=== PATIENT | female | born 1980 | race Hispanic/Latino ===

== ENCOUNTER → 2020-09-07 | Outpatient (CLI) | payer BC, SELFPAY ==
[2020-09-07 11:51] VITALS: BMI 21.3
[2020-09-14 03:07] LABS: HPV Genotype 16, Aptima Negative (Negative)
[2020-09-14 08:25] LABS: HPV APTIMA, High Risk Positive (Negative); HPV Genotype 18,45 Aptima Negative (Negative)
== END | disposition home or self-care (01) ==
PROVIDERS: PCP Family Medicine; Referring Provider Obstetrics & Gynecology; Visit Provider Obstetrics & Gynecology
DX: Z12.4 Encounter for screening for malignant neoplasm of cervix (principal)
CPT/HCPCS: 87624; 88175; G0145

== ENCOUNTER → 2020-11-01 08:00 | Outpatient (CLI) | payer BC, SELFPAY ==
[2019-10-07 13:18] VITALS: BMI 22.3
[2020-09-07 11:51] VITALS: BMI 21.3
--- NOTE | 2020-11-01 07:57 | BI_ITS ---
MAMMOGRAPHY - BILATERAL SCREENING REASON FOR EXAM: Female, 40 years old. Routine annual screening examination. PERTINENT HISTORY: Non-contributory. Occasional bilateral breast tenderness. TECHNIQUE: Digital bilateral breast meg (3D mammographic acquisition) in the CC and MLO projections. 2-D mediolateral oblique (MLO) and craniocaudad (CC) views of both breasts were obtained. CAD: Full Field Digital Mammography with Computer Added Detection was performed. COMPARISON: Comparison is made with prior outside examination dated 12/26/2015. FINDINGS: Breast Composition: The breasts are extremely dense, which lowers the sensitivity of mammography. There are no dominant masses or suspicious calcifications. No other significant abnormalities are identified. There has been no significant change since the prior study. BI/SCRN MAMM (CAD)W/MEG BILAT IMPRESSION: Stable bilateral screening mammogram. Yearly follow-up mammogram recommended. (A) ASSESSMENT CATEGORY: BIRADS Category 1: Negative. A letter regarding these results will be sent to the patient by the facility within 30 days. Approximately 10% of breast cancers are not detected by mammography. A normal mammogram should not delay biopsy of a clinically suspicious abnormality. [id number] Electronically Signed: Jovi Bosch MD at 10:32 EST , Service support ,
== END ==
PROVIDERS: PCP Family Medicine; Referring Provider Obstetrics & Gynecology; Visit Provider Obstetrics & Gynecology
DX: Z12.31 Encounter for screening mammogram for malignant neoplasm of breast (principal)
CPT/HCPCS: 77063; 77067

== ENCOUNTER → 2020-11-08 07:51 | Outpatient (CLI) | payer BC, SELFPAY ==
[2020-09-07 11:51] VITALS: BMI 21.3
[2020-11-08 08:50] LABS: Cholesterol 182 mg/dL (200); Glucose 82 mg/dL (74-106); High Density Lipoprotein 65 mg/dL; Thyroid Stim Hormone (TSH) 3.84 uIU/mL (0.358-3.74); Triglycerides 108 mg/dL; Very Low Density Lipoprotein 22 mg/dL (5-40)
[2020-11-08 09:12] LABS: Vitamin D,25 Hydroxy 32.7 ng/mL
== END ==
PROVIDERS: PCP Family Medicine; Referring Provider Obstetrics & Gynecology; Visit Provider Obstetrics & Gynecology
DX: Z13.220 Encounter for screening for lipoid disorders (principal); Z13.1 Encounter for screening for diabetes mellitus; Z13.29 Encounter for screening for other suspected endocrine disorder; Z13.21 Encounter for screening for nutritional disorder
CPT/HCPCS: 36415; 80061; 82306; 82947; 84443

== ENCOUNTER → 2020-11-10 08:00 | Outpatient (CLI) | payer BC, SELFPAY ==
[2020-09-07 11:51] VITALS: BMI 21.3
== END ==
PROVIDERS: PCP Family Medicine; Referring Provider Obstetrics & Gynecology; Visit Provider Obstetrics & Gynecology
DX: R79.89 Other specified abnormal findings of blood chemistry (principal)
CPT/HCPCS: 36415; 84439

== ENCOUNTER → 2021-08-20 | Outpatient (CLI) | payer BC, SELFPAY | END | disposition home or self-care (01) | LOC: LABSPEC 16:46 | PROVIDERS: PCP Family Medicine; Referring Provider Family Medicine; Visit Provider Family Medicine | DX: Z20.828 Contact with and (suspected) exposure to other viral communicable diseases (principal) | CPT/HCPCS: 87633; 87635; U0005; U0003 ==

== ENCOUNTER → 2021-09-20 | Outpatient (CLI) | payer BC, SELFPAY | END | disposition home or self-care (01) | PROVIDERS: PCP Family Medicine; Visit Provider Family Medicine | DX: U07.1 COVID-19 (principal) | CPT/HCPCS: 87635; U0003; U0005 ==

== ENCOUNTER 2021-10-05 09:27 | Outpatient (CLI) | payer BC, SELFPAY ==
[2021-10-05 10:16] LABS: Estradiol 21.3 pg/mL; Follicle Stimulating Hormone 63.2 mIU/mL; Luteinizing Hormone 19.6 mIU/mL; T4 Free Direct 0.84 ng/dL (0.76-1.46); Thyroid Stim Hormone (TSH) 1.99 uIU/mL (0.358-3.74)
[2021-10-10 12:08] LABS: Testosterone, Free < 0.06 ng/dL (0.10-0.85); Testosterone, Total < 3 ng/dL (4-50)
[2021-10-10 12:50] LABS: Testosterone, % Free 1.94 % (0.50-2.80)
[2021-10-11 22:06] LABS: HPV Genotype 16, Aptima Negative (Negative)
[2021-10-12 10:04] LABS: HPV APTIMA, High Risk Positive (Negative); HPV Genotype 18,45 Aptima Negative (Negative)
== END 2021-10-05 23:59 | disposition short-term general hospital (02) ==
PROVIDERS: PCP Family Medicine; Referring Provider Obstetrics & Gynecology; Visit Provider Obstetrics & Gynecology
DX: N93.9 Abnormal uterine and vaginal bleeding, unspecified (principal); Z12.4 Encounter for screening for malignant neoplasm of cervix; G43.909 Migraine, unspecified, not intractable, without status migrainosus; R79.89 Other specified abnormal findings of blood chemistry
CPT/HCPCS: 36415; 82670; 83001; 83002; 84402; 84403; 84439; 84443; 87624; 88175; G0145

== ENCOUNTER 2021-11-02 09:55 | Outpatient (CLI) | payer BC, SELFPAY ==
--- NOTE | 2021-11-02 09:59 | BI_ITS ---
MAMMOGRAPHY - BILATERAL SCREENING REASON FOR EXAM: Female, 41 years old. Routine annual screening examination. PERTINENT HISTORY: Non-contributory. TECHNIQUE: Digital bilateral breast meg (3D mammographic acquisition) in the CC and MLO projections. 2-D mediolateral oblique (MLO) and craniocaudad (CC) views of both breasts were obtained. CAD: Full Field Digital Mammography with Computer Added Detection was performed. COMPARISON: Comparison is made with prior examination dated 11/01/2020. FINDINGS: Breast Composition: The breasts are extremely dense, which lowers the sensitivity of mammography. There are no dominant masses or suspicious calcifications. No other significant abnormalities are identified. There has been no significant change since the prior study. BI/SCRN MAMM (CAD)W/MEG BILAT IMPRESSION: Stable bilateral screening mammogram. Yearly follow-up mammogram recommended. (A) ASSESSMENT CATEGORY: BIRADS Category 1: Negative. A letter regarding these results will be sent to the patient by the facility within 30 days. Approximately 10% of breast cancers are not detected by mammography. A normal mammogram should not delay biopsy of a clinically suspicious abnormality. [id number] Electronically Signed: Jovi Bosch MD at 11:20 EST ,
== END 2021-11-02 23:59 | disposition home or self-care (01) ==
LOC: OPBI 09:59
PROVIDERS: PCP Family Medicine; Referring Provider Obstetrics & Gynecology; Visit Provider Obstetrics & Gynecology
DX: Z12.31 Encounter for screening mammogram for malignant neoplasm of breast (principal)
CPT/HCPCS: 77063; 77067

== ENCOUNTER 2021-11-22 13:52 | Outpatient (CLI) | payer BC, SELFPAY ==
--- NOTE | 2021-11-22 | IMM_PTH ---
PATIENT: POLO HALEY LOC: [facility] U#:[id number] AGE/SX: 41/F ROOM: RE11/22/[address]: Dr. Macie Espana DO : 1980 BED: DIS: 11/22/2021 SPEC #: [id number] RECD: 11/26/21 14:00 STATUS: CHAVA SUMIT #: [id number] MAKENNA: 11/22/21 00:[address]: Macie Espana DEPT: IMMUNOHISTOCHEMISTRY RECD BY: Estela Disla ENTERED: 11/26/21 14:02 SP TYPE: IMMUNO OTHR DR: Dr. Víctor Biswas MD Tissues: B - Uterine cervix, NOS Procedures: p16 (initial) KI-67 (add) PHYSICIAN & INSTITUTION [place] [id number] SPECIMEN INFORMATION: Tissue Source: B ? Cervix at 12 o?clock Clinical Info: HPV positive Specimen Number: [id number] CPT code: 64555, 48016 METHODOLOGY: Deparaffinized sections of prefer/formalin-fixed tissue or PAP/DQ stained slides are incubated with monoclonal/polyclonal antibodies/oligonucleotide probes. Localization is made via biotin free immunoperoxidase method. Appropriate controls are performed and reacted as expected. Results on target cell population are indicated in the following table: RESULTS: ANTIBODY / CLONE RESULT Block B P16 (E6H4) positive, block staining Ki-67 (30-9) positive, moderate These tests were developed and their performance characteristics determined by [facility]. They may not have been cleared or approved by the U.S. Food and Drug Administration. The FDA has determined that such clearance or approval is not necessary. The above immunohistochemical/dualISH markers are ordered and reviewed by the Pathologist. INTERPRETATION: B. Cervix at 12 o?clock, biopsy: Mild and moderate squamous dysplasia. JOSEPH:gonzález 11/27/2021
--- NOTE | 2021-11-22 12:15 | CER_PTH ---
PATIENT: POLO HALEY LOC: [facility] U#:[id number] AGE/SX: 41/F ROOM: RE11/22/[address]: Dr. Macie Espana DO : 1980 BED: DIS: 11/22/2021 SPEC #: [id number] RECD: 11/22/21 13:32 STATUS: CHAVA SUMIT #: [id number] MAKENNA: 11/22/21 12:[address]: Maice Espana DEPT: SURGICAL PATHOLOGY RECD BY: Morena Casiano ENTERED: 11/23/21 09:19 SP TYPE: CERV OTHR DR: Dr. Víctor Biswas MD Tissues: A - Endocervical B - Uterine cervix, NOS Procedures: Surgery Specimen Level IV HEADER OPERATION: Colposcopy PRE-OP DIAGNOSIS: HPV positive TISSUE SUBMITTED: A ? Endocervical curettage, B ? Cervix 12 o?clock MICROSCOPIC DIAGNOSIS A. Endocervical curettings: Fragments of benign endocervical epithelium, negative for dysplasia. B. Cervix, 12 o?clock, biopsy: Mild and moderate squamous dysplasia (HGSIL, ELISA I-II) with HPV changes. Moderate chronic inflammation. See comment. JOSEPH:gonzález 11/26/2021 COMMENT B. Immunohistochemistry ([id number]) for surrogate HPV marker (p16) supports the above diagnosis. MICROSCOPIC DESCRIPTION Slides are reviewed. GROSS DESCRIPTION A - Received in fixative is one container labeled with the patient's name and designated endocervical curettage. The specimen consists of a scant amount of soft tissue. The specimen is totally submitted for cell block preparation. B - Received in fixative is one container labeled with the patient's name and designated 12 o'clock. The specimen consists of multiple irregular fragments of light varma soft tissue that in aggregate measure 0.4 x 0.3 x 0.1 cm. The specimen is totally submitted in one cassette. / JOSEPH:gonzález 11/23/2021 TC:3 CPT: 72940 x2
== END 2021-11-22 23:59 | disposition home or self-care (01) ==
LOC: LABSPEC 13:54
PROVIDERS: PCP Family Medicine; Referring Provider Obstetrics & Gynecology; Visit Provider Obstetrics & Gynecology
DX: N87.1 Moderate cervical dysplasia (principal)
CPT/HCPCS: 88305; 88341; 88342

== ENCOUNTER 2022-01-15 11:41 | Day surgery (SDC) | payer BC, SELFPAY ==
--- NOTE | 2022-01-14 20:06 | HP.PCM_ITS ---
History and Physical Date of Admission: 01/15/22 [facility] [id number] [place] [address] [phone] OFFICE VISITDate of Service: 12/20/21 MR#:[id number]: Toshia HALEY #:[id number]:1980 Provider:Dr. Macie Espana, DOAge/Sex: 41/F [facility] Vital Signs 12/20/21 11:02 Height 5 ft 1 in Weight: 119 lb 6 oz BMI 22.5 BP 108/84 H Intake Visit Reasons: discuss LEEP Fat Purification Worker Required: No Is patient in pain?: No Allergies cocoa Allergy (Verified 12/20/21 11:01) Anaphylaxis, itching, swelling Medications multivitamin with iron 1 tab PO DAILY 01/12/19 [History Confirmed 12/20/21] elderberry fruit 460 mg-elderberry flower 115 mg capsule cap PO 09/07/20 [History Confirmed 12/20/21] ascorbate calcium (vitamin C) 500 mg tablet 500 mg PO DAILY 12/11/20 [History Confirmed 12/20/21] cholecalciferol (vitamin D3) 50 mcg (2,000 unit) capsule 50 mcg PO DAILY 12/11/20 [History Confirmed 12/20/21] zinc 50 mg tablet 50 mg PO DAILY 12/11/20 [History Confirmed 12/20/21] conj estrogen-medroxyprogesterone 0.3 mg-1.5 mg tablet 1 tab PO DAILY 30 Days #30 tab 10/23/21 [Rx Confirmed 12/20/21] Post menopausal: No Patient : No : No PFSH Medical History Abnormal Pap smear of cervix Chronic neck and back pain Migraines Shoulder pain Family History Other Cancer Ovarian cancer Uterine cancer Social History household members: spouse housing: house Smoking Status: Former smoker pack-years: 10 alcohol intake: current alcohol intake frequency: holidays/special occasions only substance use type: does not use caffeine: Yes what type of physical activity do you participate in: walking and running frequency: 5-6 times per week seatbelt use: always do you feel safe at home: Yes additional social history: - Nicholas Patient works at the [employer] HPI discuss LEEP Details: POLO HALEY is a 41 year old who presents for discussion about finding on colposcopy of moderate dysplasia. She has never undergone freezing, conization, or LEEP. Pregancy History 0 Elective abortions Hx Para Spontaneous abortions Hx # Term Pregnancies Ectopic pregnancies Hx # Pregnancies Multiple births # of living children ROS Const ROS Unobtainable: All systems reviewed & are unremarkable except as noted in H Resp Resp: Reports system reviewed and no additional complaints, except as documented; Denies cough GI GI: Reports as per HPI Psych Psych: Reports system reviewed and no additional complaints, except as documented Exam Const General: cooperative, healthy appearing, comfortable and no acute distress Resp Effort & Inspection: normal respiratory effort Skin General: no rashes or lesions noted Psych Appearance: grossly normal Speech and Movement: speech and movement normal Coding Level of Care Code Off vis,est,level 3 Diagnoses ELISA II (cervical intraepithelial neoplasia II) N87.1 Assessment and Plan Assessment and Plan (1) ELISA II (cervical intraepithelial neoplasia II): Status: Acute Plan - Dr. Macie Espana DO: plan for leep proceedure next available opening in OR. The risks, benefits, alternatives were discussed with the patient and a consent form was signed. Plan Details Goals & Barriers: Goals Improve posture Decrease pain and spasm Improve ROM Barriers Work requirements 12/21/21 1442<Electronically signed by Macie Espana DO>Date Macie Espana DO UPDATE- I have seen the patient and performed any clinically relevant updates to the history and physical exam. Macie Espana DO
[2022-01-15] VITALS (8 sets, daily range): BP systolic 86–115; BP diastolic 56–77; PULSE 52–63; RESP 12–18; TEMP 36.1–36.6; O2SAT 96–100; BMI 22.1
--- NOTE | 2022-01-15 | IMM_PTH ---
PATIENT: POLO HALEY LOC: [facility] [place] U#:[id number] AGE/SX: 41/F ROOM: RE01/15/[address]: Dr. Macie Espana DO : 1980 BED: DIS: 01/15/2022 SPEC #: [id number] RECD: 01/17/22 13:01 STATUS: CHAVA SUMIT #: [id number] MAKENNA: 01/15/22 00:[address]: Macie Espana DEPT: IMMUNOHISTOCHEMISTRY RECD BY: Estela Disla ENTERED: 01/17/22 13:02 SP TYPE: IMMUNO OTHR DR: Dr. Víctor Biswas MD Tissues: Uterine cervix, NOS Procedures: p16 (initial) KI-67 (add) P16 (add) PHYSICIAN & INSTITUTION [place] [id number] SPECIMEN INFORMATION: Tissue Source: Cervix, LEEP conization Clinical Info: ELISA II Specimen Number: [id number] #1 & 3 CPT code: 10175, 07733 x 3 METHODOLOGY: Deparaffinized sections of prefer/formalin-fixed tissue or PAP/DQ stained slides are incubated with monoclonal/polyclonal antibodies/oligonucleotide probes. Localization is made via biotin free immunoperoxidase method. Appropriate controls are performed and reacted as expected. Results on target cell population are indicated in the following table: RESULTS: ANTIBODY / CLONE RESULT Block 1 P16 (E6H4) positive, focal patchy staining Ki-67 (30-9) positive, very low Block 3 P16 (E6H4) negative Ki-67 (30-9) positive, very low These tests were developed and their performance characteristics determined by [facility]. They may not have been cleared or approved by the U.S. Food and Drug Administration. The FDA has determined that such clearance or approval is not necessary. The above immunohistochemical/dualISH markers are ordered and reviewed by the Pathologist. INTERPRETATION: Cervix, LEEP conization: Focal minimal changes, suspicious for HPV cytopathic effects. /JOSEPH daniel 01/18/22
--- NOTE | 2022-01-15 | CER_PTH ---
PATIENT: POLO HALEY LOC: [facility] [place] U#:[id number] AGE/SX: 41/F ROOM: RE01/15/[address]: Dr. Macie Espana DO : 1980 BED: DIS: 01/15/2022 SPEC #: [id number] RECD: 01/15/22 15:22 STATUS: CHAVA GARDNERGisela #: [id number] MAKENNA: 01/15/22 00:[address]: Macie Espana DEPT: SURGICAL PATHOLOGY RECD BY: Reji Rivera ENTERED: 01/16/22 09:28 SP TYPE: CERV OTHR DR: Dr. Víctor Biswas MD Tissues: Uterine cervix, NOS Procedures: Surgery Specimen Level V HEADER OPERATION: LEEP cone PRE-OP DIAGNOSIS: ELISA II TISSUE SUBMITTED: Cervix MICROSCOPIC DIAGNOSIS Cervix, LEEP conization: Focal minimal changes suspicious for HPV cytopathic effects. Acute and chronic inflammation. Resection margins are free of dysplastic changes. See comment. JOSEPH:gonzález 01/17/2022 COMMENT Immunohistochemistry ([id number]) for surrogate HPV marker (p16) supports the above diagnosis. Please make reference to previous specimen ([id number]) cervix, 12 o?clock, biopsy with diagnosis of ?mild and moderate squamous dysplasia.? MICROSCOPIC DESCRIPTION Slides are reviewed. GROSS DESCRIPTION Received in fixative is one container labeled with the patient's name and designated cervix. The specimen consists of a previously opened piece of varma, indurated tissue consistent with cervical conization measuring 2.4 x 2 x 2 cm. The specimen is previously opened, presumed to be 12 o?clock position. No mucosal lesion is identified. Nonmucosal surface is inked black. The endocervical margin is inked blue. Drafter Topographical sections are submitted in four cassettes as follows: 1 - 12 to 3 o?clock, 2 - 3 to 6 o?clock, 3 - 6 to 9 o?clock, 4 - 9 to 12 o?clock. / JOSEPH:gonzález 01/16/2022 TC:5 [facility]: [id number]
[2022-01-15] MEDS: Lactated Ringers 1,000 ML 15 ML IV ×2 (12:07→15:39)
[2022-01-15 12:16] LABS: Hematocrit 42.3 % (37-47); Hemoglobin 14.4 g/dL (12.0-15.0); Mean Corpuscular Hgb 29.4 pg (27.0-32.0); Mean Corpuscular Volume 86.5 fL (81-99); Mean Platelet Vol. 9.7 fl (6.2-12.0); Platelet Count 237 K/mm3 (150-450); RBC Distribution Width CV 12.7 % (11.6-14.6); RBC Distribution Width SD 39.9 fl (35.1-43.9); Red Blood Count 4.89 M/mm3 (4.2-5.4); White Blood Count 7.7 K/mm3 (4.4-11.0)
[2022-01-15 12:18] LABS: Internal QC Validated? YES +Cl - CLEAR BKGD; Pregnancy, Urine Negative Negative
--- NOTE | 2022-01-15 14:27 | PCM.DC ---
Discharge Instructions Diet Discharge Diet: No restrictions Activity Discharge Activity: Return to Normal Activity and [address] (while taking narcotic pain mediations.) May resume sexual activity in: 4 weeks (Nothing in the vagina for 4 weeks.) Dressing / Incision Call your doctor if you observe: Fever of 101 or Higher and Using more than 1 pad per hour Follow Up Care Please Follow Up With: Macie Espana DO When: Call [phone] for follow-up appointment. Test Results: Test results from this visit will be discussed in further detail at your follow-up appointment, if applicable. Discharge Plan Admission Primary Reason for Your Visit: LEEP procedure Attending Provider: Macie Espana Primary Care Provider: Víctor Biswas Discharge Orders/Prescriptions Prescriptions: New oxycodone-acetaminophen [Percocet] 5-325 mg tablet 1 tab PO Q6H PRN (Reason: pain) 2 Days Qty: 3 RF: 0 Continued multivitamin with iron [Daily Multiple Vitamins/Iron] tablet 1 tab PO DAILY RF: 0 ascorbate calcium (vitamin C) 500 mg tablet 500 mg PO DAILY RF: 0 zinc 50 mg tablet 50 mg PO DAILY RF: 0 Referrals / Follow Up: Víctor Biswas MD [Primary Care Provider] - Disposition Disposition (needs filled in before D/C Order can be placed): Home, Self Care
[2022-01-15] MEDS: Lidocaine 1% (20 ml mdv) 20 ML Vial (14:46)
[2022-01-15] MEDS: Iodine/Potassium Iodide 14ML Bottle 1 DRP TOPICAL (14:47)
[2022-01-15] MEDS: FERRIC SUBSULFATE 8 GM SOLN (14:50)
--- NOTE | 2022-01-15 14:53 | PCM.OP.BLANK ---
Problems Associated Problem List Diagnoses (1) ELISA II (cervical intraepithelial neoplasia II): Operative Report Date of Procedure: 01/15/22 Preoperative diagnosis: Moderate cervical dysplasia Postoperative diagnosis: Moderate cervical dysplasia Procedure: LEEP (loop electrocautery excisional procedure) Surgeon: Dr. Macie Espana DO Estimated blood loss: Minimal Urine output: 200 cc Anesthesia: MAC and local using 1% lidocaine Details of the procedure: Patient was brought to the operating room where MAC anesthesia was found to be adequate. She was prepped and draped in the usual sterile fashion her legs were placed in stirrups. A thermal protected speculum was placed in the vagina. Lugol's solution was applied to the cervix. At the 2 and 10 o'clock position on the cervix 1% lidocaine plain was injected approximately 10 cc amount. Using the large Carlos cone biopsy device on the Bovie, the LEEP procedure was performed. The specimen was then passed off for pathology analysis. There was minimal bleeding on the cervical edge the ball cautery device was used to cauterize the cut edges of the LEEP site. Followed by application of Monsel solution. The patient tolerated the procedure well sponge lap and needle counts were correct x2 and all instruments removed from the vagina and she is now being brought to the recovery room in stable condition. Multi Select Codes Urinary/Genital Urinary/Genital CPT Codes: 57108 LEEP
== END 2022-01-15 16:38 | disposition home or self-care (01) ==
LOC: SDC 11:43 → AC 11:45
PROVIDERS: PCP Family Medicine; Visit Provider Obstetrics & Gynecology
PROC: 0UBC7ZZ Excision of Cervix, Via Natural or Artificial Opening (ICD-10-PCS; CPT 57522; principal; 2022-01-15 13:35)
DX: N87.1 Moderate cervical dysplasia (principal); Z87.891 Personal history of nicotine dependence
CPT/HCPCS: 57522; 81025; 85027; 86850; 86900; 86901; 88307; 88341; 88342; J7120; J2405

== ENCOUNTER 2022-09-29 14:18 | Emergency (ER) | payer BC, SELFPAY ==
[2022-09-29 14:20] VITALS: BP 124/61; PULSE 72; RESP 18; TEMP 36.3; O2SAT 98; BMI 21.9
--- NOTE | 2022-09-29 14:35 | CT_ITS ---
STUDY: CT Abdomen And Pelvis W/ Contrast Injection 09/29/2022 3:39 PM REASON FOR EXAM: Female, 42 years old. ABDOMINAL PAIN rlq pain PT C/O ABD PAIN RADIATING TO RIGHT FLANK AND NAUSEA SINCE LAST NIGHT TECHNIQUE: Transaxial images were obtained without oral contrast, and with IV 100mL Isovue-300 intravenous contrast. Individualized dose optimization techniques were used for this CT. COMPARISON: None. FINDINGS: The visualized lung bases are unremarkable. The visualized portions of the heart are within normal limits. Unremarkable liver. Unremarkable gallbladder and extrahepatic biliary system. Unremarkable spleen. Unremarkable pancreas. Unremarkable bilateral adrenal glands. No acute findings of the right kidney. No acute findings of the left kidney. Unremarkable visualized stomach. Unremarkable small intestine. Unremarkable colon. The appendix is visualized and appears unremarkable. There are no acute findings of the abdominal aorta. Unremarkable inferior vena cava. Subcentimeter mesenteric lymph nodes. Unremarkable urinary bladder. Normal visualized uterus. There is free fluid in the pelvis. This can be physiologic. There is an umbilical hernia containing fat. Unremarkable osseous structures. CT/Abdomen/Pelvis W IV Cont ONLY IMPRESSION: (NOT LISTED IN ORDER OF SIGNIFICANCE) The appendix is visualized and appears unremarkable. There is free fluid in the pelvis. This can be physiologic. Other findings as above. Electronically Signed: Khari Haskins MD at 15:41 EST ,
[2022-09-29 14:49] LABS: Mucous, Urine 0 SEEN /hpf (<or=2+); Red Blood Cells-Urine 0 SEEN /hpf (0-5); White Blood Cells 0 SEEN /hpf (0-5)
[2022-09-29 14:51] LABS: Color, Urine Yellow (Yellow); Glucose, Dipstick Normal (Normal); Ketone-Dipstick Negative (Negative); Leukocyte Esterase-Dipstick 25 /ul (Negative); Nitrite-Dipstick Negative (Negative); Occult Blood-Urine 10 /ul (Negative); Protein-Dipstick Negative (Negative); Urine Bilirubin Dipstick Negative (Negative); Urine Clarity Clear (Clear); Urine Urobilinogen Normal (Normal)
[2022-09-29 14:52] LABS: Absolute Neutrophil Count 4.4 X10^3/uL (2.0-7.7); Basophil# 0.04 X10^3/uL; Basophil% 0.5 % (0-1); Eosinophil# 0.11 X10^3/uL; Eosinophils% 1.5 % (0-5); Hematocrit 39.9 % (37-47); Hemoglobin 13.4 g/dL (12.0-15.0); Mean Corp Hgb Conc 33.6 g/dL (32-36); Mean Corpuscular Hgb 28.9 pg (27.0-32.0); Mean Corpuscular Volume 86.2 fL (81-99); Mean Platelet Vol. 9.7 fl (6.2-12.0); Monocyte# 0.61 X10^3/uL; Monocyte% 8.3 % (0-10); NRBC Flagged by Analyzer 0 % (0-5); Neutrophil # 4.35 X10^3/uL (2.7-7.7); Neutrophil % 59.4 % (47-70); Platelet Count 233 K/mm3 (150-450); RBC Distribution Width CV 12.6 % (11.6-14.6); RBC Distribution Width SD 39.3 fl (35.1-43.9); Red Blood Count 4.63 M/mm3 (4.2-5.4); White Blood Count 7.3 K/mm3 (4.4-11.0)
[2022-09-29 14:56] LABS: Bacteria 1+ /hpf (None Seen); Squamous Epithelial Cells - UA 0-5 SEEN /hpf (5-10)
[2022-09-29 15:06] LABS: Internal QC Validated? YES +Cl - CLEAR BKGD
[2022-09-29 15:08] LABS: AST(SGOT) 11 U/L (15-37); Alanine Aminotransfer ALT/SGPT 11 U/L (13-56); Alkaline Phosphatase 62 U/L (45-117); Anion Gap 6 (5-15); BUN 15 mg/dL (7-18); BUN/Creat Ratio 16.7 RATIO (10-20); Calcium,Total 9.4 mg/dL (8.5-10.1); Chloride 107 mmol/L (98-107); EST Glomerular Filtration Rate 73 mL/min (>60); Est Glom Filt Rate - Afr Amer 88 mL/min (>60); Estimated Creatinine Clearance 61.45 ml/min; Globulin 4.1 g/dL (2.2-4.2); Glucose 94 mg/dL (74-106); Lipase 137 U/L (73-393); Potassium 3.5 mmol/L (3.5-5.1); Protein, Total 8.1 g/dL (6.4-8.2); Sodium Level 138 mmol/L (136-145)
[2022-09-29 15:09] LABS: Pregnancy, Urine Negative Negative
--- NOTE | 2022-09-29 15:26 | EDS_ITS ---
HPI History of Present Illness Chief Complaint: Abd Pain Informant: patient Onset/Context/Timing Onset: Today Location: RLQ Current Severity: Moderate Worsened by: urinating Relieved by: nothing Associated Symptoms Associated Symptoms: no n/v, no change in bms, no bleeding, no CRIMINAL INVESTIGATOR symptoms, worse with urinatng Narrative Prior similar symptoms: No Recent Illness/Hospitalization: No PFSH PFSH Medical History Abnormal Pap smear of cervix Alcohol use Back pain Former smoker Leg cramps Migraines Shoulder pain Home Medications multivitamin with iron (Daily Multiple Vitamins with Iron tablet) 1 tab PO DAILY 01/12/19 [History Last Taken Unknown] ascorbate calcium (vitamin C) 500 mg tablet 500 mg PO DAILY 12/11/20 [History Last Taken Unknown] zinc 50 mg tablet 50 mg PO DAILY 12/11/20 [History Last Taken Unknown] Allergy/AdvReac Type Severity Reaction Status Date / Time cocoa Allergy Anaphylaxis, Verified 09/29/22 14:21 itching, swelling Family History Other Cancer Ovarian cancer Uterine cancer Surgical History No history of previous surgery Social History household members: spouse housing: house Smoking Status: Former smoker pack-years: 10 alcohol intake: current alcohol intake frequency: holidays/special occasions only substance use type: does not use caffeine: Yes what type of physical activity do you participate in: walking and running frequency: 5-6 times per week seatbelt use: always do you feel safe at home: Yes additional social history: Meredith Peterson Patient works at the [employer] ED Constitutional Constitutional ED: Denies chills or fever(s) Eyes Eyes: Denies blurry vision ENT ENT ED: Denies ear pain Cardiovascular Cardiovascular: Denies chest pain Respiratory/Chest Respiratory/Chest: Denies cough Gastrointestinal Gastrointestinal: Reports abdominal pain; Denies constipation, diarrhea, melena, nausea or vomiting Genitourinary Genitourinary ED: Denies dysuria, hematuria or urinary frequency Musculoskeletal Musculoskeletal: Denies arthralgias or back pain Integumentary Denies abscess Neurologic Neurologic: Denies headache(s) Psychiatric Psychiatric: Denies anxiety Endocrine Endocrinology: Denies cold intolerance Hematologic/Lymphatic Hematologic/Lymphatic: Reports systems reviewed and no addt'l complaints, except as documented Allergic/Immunologic Allergic/Immunologic ED: Denies mouth swelling EXAM Physical Exam Const Vital Signs: 09/29/22 14:20 Temperature 97.3 F L Temperature Source Temporal Pulse Rate 72 Respiratory Rate 18 Blood Pressure 124/61 H Blood Pressure Mean 82 Pulse Ox 98 Oxygen Delivery Method Room Air Positive well nourished and well developed General Appearance ED: well developed HEENT Reports moist mucous membranes Resp normal respiratory effort and clear to auscultation bilaterally Cardio regular rate and regular rhythm GI Palpation: soft and tender; Negative for guarding Back/Spine no CVA tenderness Extremity normal to inspection Neuro oriented x3 and CN's II-XII intact bilaterally Psych mental status grossly normal Skin no rashes or lesions noted MDM MDM MDM Narrative Medical decision making narrative: Patient presents from urgent care with right lower quadrant pain, concern for appendicitis. No other concerning CRIMINAL INVESTIGATOR or symptoms. CBC was unremarkable. Showed white count of 7.3, hemoglobin 13.4, platelets 233. Metabolic panel was completely unremarkable. Hepatic panel normal. Lipase normal. negative. Urinalysis negative. CT showed free fluid in the pelvis, likely physiologic. No sign of appendicitis. No other masses or abnormal findings to explain her pain. Patient was given early appendicitis precautions. Return for any new or worsening issues. Otherwise follow-up with primary care for outpatient management. Disposition is discharged home. Impression #1 right lower quadrant pain Lab Data Attestation: I reviewed the patient's lab results. Labs: Laboratory Results - last 24 hr 09/29/22 09/29/22 09/29/22 14:40 14:40 14:40 WBC 7.3 RBC 4.63 Hgb 13.4 Hct 39.9 MCV 86.2 MCH 28.9 MCHC 33.6 RDW Std Deviation 39.3 RDW Coeff of Vee 12.6 Plt Count 233 MPV 9.7 Immature Gran % (Auto) 0.300 Neut % (Auto) 59.4 Lymph % (Auto) 30.0 [place] % (Auto) 8.3 Eos % (Auto) 1.5 Baso % (Auto) 0.5 Absolute Neuts (auto) 4.4 Absolute Lymphs (auto) 2.20 Nucleated RBC % 0 Sodium 138 Potassium 3.5 Chloride 107 Carbon Dioxide 25.0 Anion Gap 6 BUN 15 Creatinine 0.90 Estim Creat Clear Calc 61.45 Est GFR (MDRD) Af Amer 88 Est GFR (MDRD) Non-Af 73 BUN/Creatinine Ratio 16.7 Glucose 94 Calcium 9.4 Total Bilirubin 0.60 AST 11 L ALT 11 L Alkaline Phosphatase 62 Total Protein 8.1 Albumin 4.0 Globulin 4.1 Albumin/Globulin Ratio 1.0 Lipase 137 Urine Color Yellow Urine Clarity Clear Urine pH 5.0 Ur Specific [place] 1.020 Urine Protein Negative Urine Glucose (UA) Normal Urine Ketones Negative Urine Occult Blood 10 H Urine Nitrite Negative Urine Bilirubin Negative Urine Urobilinogen Normal Ur Leukocyte Esterase 25 H Urine RBC 0 SEEN Urine WBC 0 SEEN Ur Squamous Epith Cells 0-5 SEEN Urine Bacteria 1+ Urine Mucus 0 SEEN Urine Test Cancelled 09/29/22 15:00 WBC RBC Hgb Hct MCV MCH MCHC RDW Std Deviation RDW Coeff of Vee Plt Count MPV Immature Gran % (Auto) Neut % (Auto) Lymph % (Auto) [place] % (Auto) Eos % (Auto) Baso % (Auto) Absolute Neuts (auto) Absolute Lymphs (auto) Nucleated RBC % Sodium Potassium Chloride Carbon Dioxide Anion Gap BUN Creatinine Estim Creat Clear Calc Est GFR (MDRD) Af Amer Est GFR (MDRD) Non-Af BUN/Creatinine Ratio Glucose Calcium Total Bilirubin AST ALT Alkaline Phosphatase Total Protein Albumin Globulin Albumin/Globulin Ratio Lipase Urine Color Urine Clarity Urine pH Ur Specific [place] Urine Protein Urine Glucose (UA) Urine Ketones Urine Occult Blood Urine Nitrite Urine Bilirubin Urine Urobilinogen Ur Leukocyte Esterase Urine RBC Urine WBC Ur Squamous Epith Cells Urine Bacteria Urine Mucus Urine Test Negative Radiography Diagnostic Testing: Clinical Impression(s) from Imaging Studies Abdomen/Pelvis CT 09/29/22 14:35 IMPRESSION: (NOT LISTED IN ORDER OF SIGNIFICANCE) The appendix is visualized and appears unremarkable. There is free fluid in the pelvis. This can be physiologic. Other findings as above. Electronically Signed: Khari Haskins MD at 15:41 EST , Discharge Plan Triage Chief Complaint: Abd Pain ED Provider: Jerson Lewis Dx/Rx/DC Orders Prescriptions: No Action multivitamin with iron [Daily Multiple Vitamins/Iron] tablet 1 tab PO DAILY ascorbate calcium (vitamin C) 500 mg tablet 500 mg PO DAILY zinc 50 mg tablet 50 mg PO DAILY Primary Care Provider: Víctor Biswas Referrals: Víctor Biswas MD [Primary Care Provider] -
== END 2022-09-29 16:02 | disposition home or self-care (01) ==
PROVIDERS: Emergency Provider Emergency Medicine; PCP Family Medicine; Visit Provider Emergency Medicine
DX: R10.31 Right lower quadrant pain (principal); Z87.891 Personal history of nicotine dependence
CPT/HCPCS: 74177; 80053; 81001; 81025; 83690; 85025; 99283; Q9967; A4216

== ENCOUNTER → 2022-10-18 | Outpatient (CLI) | payer BC, SELFPAY ==
[2022-10-24 19:47] LABS: HPV APTIMA, High Risk Negative (Negative)
== END | disposition home or self-care (01) ==
LOC: LABSPEC 13:42
PROVIDERS: PCP Family Medicine; Referring Provider Obstetrics & Gynecology; Visit Provider Obstetrics & Gynecology
DX: Z12.4 Encounter for screening for malignant neoplasm of cervix (principal)
CPT/HCPCS: 87624; 88175; G0145

== ENCOUNTER → 2022-11-04 | Outpatient (CLI) | payer BC, SELFPAY ==
--- NOTE | 2022-11-04 10:14 | BI_ITS ---
MAMMOGRAPHY - BILATERAL SCREENING REASON FOR EXAM: Female, 42 years old. Routine annual screening examination. PERTINENT HISTORY: Non-contributory. TECHNIQUE: Digital bilateral breast meg (3D mammographic acquisition) in the CC and MLO projections. 2-D mediolateral oblique (MLO) and craniocaudad (CC) views of both breasts were obtained. CAD: Full Field Digital Mammography with Computer Added Detection was performed. COMPARISON: Comparison is made with prior study 11/02/2021 and 11/01/2020. FINDINGS: Breast Composition: The breasts are extremely dense, which lowers the sensitivity of mammography. There are no dominant masses or suspicious calcifications. No other significant abnormalities are identified. There has been no significant change since the prior study. BI/SCRN MAMM (CAD)W/MEG BILAT IMPRESSION: Stable bilateral screening mammogram. Yearly follow-up mammogram recommended. (A) ASSESSMENT CATEGORY: BIRADS Category 1: Negative. A letter regarding these results will be sent to the patient by the facility within 30 days. Approximately 10% of breast cancers are not detected by mammography. A normal mammogram should not delay biopsy of a clinically suspicious abnormality. [id number] Electronically Signed: Jovi Bosch MD at 12:33 EST ,
== END | disposition home or self-care (01) ==
LOC: OPBI 10:12
PROVIDERS: PCP Family Medicine; Referring Provider Obstetrics & Gynecology; Visit Provider Obstetrics & Gynecology
DX: Z12.31 Encounter for screening mammogram for malignant neoplasm of breast (principal)
CPT/HCPCS: 77063; 77067

== ENCOUNTER 2022-12-10 09:30 | Outpatient (RCR) | payer BC, SELFPAY ==
--- NOTE | 2022-11-13 09:50 | HP.PTEVAL_ITS ---
Patient's Visit Information POLO HALEY is a 42 year old F referred to Physical Therapy by FATOUMATA Ceja with a diagnosis of R shoulder impingement syndrome. Date of Evaluation: 11/07/22 Physical Therapist: Ancelmo Mijares DPT - Visit Plan Frequency: 2x /Week Duration: 4 Weeks Plan: Start with phase III R shoulder strengthening. Also have AAROM shoulder flexion and abduction. Progress as tolerated. - Subjective Pt. is here today for her initial evaluation with diagnosis of R shoulder impingement syndrome. Pt. reports having pain for a few months now with no mech of injury. She reports increased pain with reaching overhead and lifting. 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 She denies N/T, no neck pain. Pt. describes pain at subacromial that does go down into her deltoid region with movement. Pt. is sleeping okay. She is hopeful to reduce symptoms in order to complete all work and recreational activities without limitations. - Pain R shoulder Pain Intensity (Out of 10): 2 Pain Intensity Range: 1, 6 - Objective POSTURE: Pt. has decent posture in stance, normal shoulder height, symmetrical. Pt. has slight forward shoulder but not much and able to correct. PALPATION: Pt. has some mild tenderness with palpation of subacromial space, but not severe. No pain with rest of palpation thorughout R shoulder complex. NEURO: normal throughout BUEs. ROM: R shoulder: AROM: flexion 180deg increase starting at 120deg, abd 170deg increase starting at ~120deg. functional ER C5 increase N W, functional IR NE. PROM: full motion, increased pain towards end ranges of flexion and abduction. Increased pain with IR at 90deg. of abduction. MMT: LUE 5/5 throughout no effect. R shoulder: flexion 4+/5 mild increase NW, abd 4+/5 mild increase NW, ER 4+/5 mild increase NE, IR 5/5, ext 5/5. Serratus anterior 4+/5. - Special Tests R Shoulder Lift Off Test - Subscapular Tear: Negative R Shoulder Drop Sign - IS Test: Negative R Shoulder Empty Can - SS: Negative R Shoulder Belly Press - SupScap: Negative R Shoulder Neer - Impingement: Positive R Shoulder Cervantes Rufus - Impingement: Positive R Shoulder Biceps Load Test - Labrum: Negative R Shoulder Speeds Test - Labrum/Biceps: Negative - Balance/Special Test Scores Quick DASH Score: 15.9075 - Goals Goal 1:: LTG: Pt. to be I with HEP. Goal Time Frame: 4-6 Weeks Goal 2:: STG: pt. to have increased pain free R shoulder ROM. Goal Time Frame: 2-4 Weeks Goal 3:: LTG: Pt. to complete all work activities without increase in R shoulder pain. Goal Time Frame: 4-6 Weeks Goal 4:: LTG: Pt. to increased R shoulder strength to 5/5 throughout without increase in symptoms. Goal Time Frame: 4-6 Weeks - Rehabilitation Potential Physical Therapy Diagnosis: Pt. has signs and symptoms consistent with R shoulder impingement syndrome. Pt. has increased pain with increased overhead motion. Pt. has good ROM , but does have some pain in the end ranges. She does have some weakness, but not expected weakness coinciding with more sinister pathology. Pt. would benefit from PT to increase strength/stability of R shoulder progressing back to normal activities as tolerated. Rehabilitation Potential: Excellent - Anticipated Interventions Patient/Client Instruction: Educate patient on: Condition, Plan of Care, Risk Factors, Benefits of Fitness Program For the Purpose of:: To improve decision making, To facilitate caregiver knowledge, To improve self management, To prevent re-injury, To improve ability to perform tasks related to life management Therapeutic Exercise to Include: Strength training, Power training, Endurance training, Body mechanics, Postural training, Flexibilty training, Passive ROM, Active ROM For the Purpose of:: To decrease pain, To increase ROM, To improve nutrient delivery to tissue, To increase oxygenation perfusion, To improve muscle performance and motor function, To improve ability to perform ADL's, To improve ability of physical actions for home/community/work/leisure, To improve health of tissue, To decrease soft tissue restriction, To increase flexibility/ROM Manual Therapy Techniques to Include: Mobilization For the Purpose of:: To decrease pain, To increase ROM, To improve nutrient delivery to tissue, To increase oxygenation perfusion Thank you for the opportunity to evaluate your patient. For Medicare and Medicare HMO plans, please review the plan of care and approve it. It will need to be FAXED BACK to us at [phone] for Medicare purposes. For Medicare only, by signing this I certify the plan of care. Please let me know if there are questions or concerns regarding this plan of care. Physician Signature: Date:
--- NOTE | 2022-12-10 10:27 | HP.PTDCSUM ---
It has been my pleasure to treat POLO HALEY referred by FATOUMATA Ceja, with the diagnosis of R shoulder impingement syndrome for a total of 6 visit(s). Discharge Date: 12/10/22 Please see the following information for a summary of their discharge status. Subjective: Pt. reports being 100% better overall. Pt. reports no issues currently. She has been able to do all home and work activities without limitations. R shoulder Pain Intensity (Out of 10): 0 % Improvement: 100 Objective/Function: Pt. is overall doing very well. ROM: Pt. has full ROM including functional ER/IR motions. Pt. had no pain with over pressures at end ranges. MMT: Pt. had symmetrical 5/5 strength of B shoulders without increase in symptoms. Pt. is back to all work and household activities without limitations. At this point in time I would recommend that she continue with exercises on her own with focus on RTC strength/stability. Pt. consents. Goal 1:: LTG: Pt. to be I with HEP. Goal Progress: Goal Met Goal 2:: STG: pt. to have increased pain free R shoulder ROM. Goal Progress: Goal Met Goal 3:: LTG: Pt. to complete all work activities without increase in R shoulder pain. Goal Progress: Goal Met Goal 4:: LTG: Pt. to increased R shoulder strength to 5/5 throughout without increase in symptoms. Goal Progress: Goal Met Plan: Start with phase III R shoulder strengthening. Also have AAROM shoulder flexion and abduction. Progress as tolerated. Discharge Comments: Pt. was treated in PT for her R shoulder pain. Pt. is doing very well. She is to continue with all of her exercises on her own at this point in time. I want her to continue to work on strengthening of her RTC and stability exercises. Pt. consents. Pt. to follow up with physician if future issues arise. If there are questions or concerns regarding this patient's physical therapy, please feel free to call me at [phone]. Thank you for the referral of this patient. Sincerely, Ancelmo Mijares, DPT Balance/Gait/Functional tests - Balance/Special Test Scores Quick DASH Score: 0
== END 2022-12-10 15:01 | disposition home or self-care (01) ==
LOC: PT 09:30
PROVIDERS: PCP Family Medicine; Referring Provider Physician Assistant; Visit Provider Physician Assistant
DX: M75.41 Impingement syndrome of right shoulder (principal)
CPT/HCPCS: 97110; 97161; 97164

== ENCOUNTER → 2023-10-21 | Outpatient (CLI) | payer OTHER, SELFPAY ==
[2023-10-29 16:10] LABS: HPV APTIMA, High Risk Negative (Negative)
== END | disposition home or self-care (01) ==
LOC: LABSPEC 13:06
PROVIDERS: PCP Family Medicine; Referring Provider Obstetrics & Gynecology; Visit Provider Obstetrics & Gynecology
DX: Z12.4 Encounter for screening for malignant neoplasm of cervix (principal)
CPT/HCPCS: 87624; 88175; G0145

== ENCOUNTER → 2023-11-03 | Outpatient (CLI) | payer OTHER, SELFPAY ==
--- NOTE | 2023-11-03 07:13 | BI_ITS ---
MAMMOGRAPHY - BILATERAL SCREENING REASON FOR EXAM: Female, 43 years old. Routine annual screening examination. PERTINENT HISTORY: Non-contributory. TECHNIQUE: Digital bilateral breast meg (3D mammographic acquisition) in the CC and MLO projections. 2-D mediolateral oblique (MLO) and craniocaudad (CC) views of both breasts were obtained. CAD: Full Field Digital Mammography with Computer Added Detection was performed. COMPARISON: Comparison is made with prior study dated November 04, 2022 and November 02, 2021. FINDINGS: Breast Composition: The breasts are extremely dense, which lowers the sensitivity of mammography. There are no dominant masses or suspicious calcifications. No other significant abnormalities are identified. There has been no significant change since the prior study. BI/SCRN MAMM (CAD)W/MEG BILAT IMPRESSION: Stable bilateral screening mammogram. Yearly follow-up mammogram recommended. (A) ASSESSMENT CATEGORY: BIRADS Category 1: Negative. A letter regarding these results will be sent to the patient by the facility within 30 days. Approximately 10% of breast cancers are not detected by mammography. A normal mammogram should not delay biopsy of a clinically suspicious abnormality. [id number] Electronically Signed: Jovi Bosch MD at 8:42 EST ,
--- OUTSIDE RECORDS SUMMARY | 2023-11-03 07:14 | XMS RPT_ITS | CCD ---
Author Name Unknown Address [address] [place] [id number] Organization [facility] Care Team Providers Care Supervisor [employer] Name Role Phone Jamie PARSONS, Kris Lozada Primary Care Provider [phone] Allergies Allergy Classification Reported Allergen(s) Allergy Type Date of Onset Reaction(s) Facility (2 sources) Chocolate; Translations: [CHOCOLATE] Propensity to adverse reactions 9 Swelling, Itching [facility] Work Phone: Medications Current Medications Medication Drug Class(es) Dates Sig (Normalized) Sig (Original) doxycycline monohydrate 100 mg oral tablet (1 source) Tetracycline-clas s Drug Start: 01-23-2023 End: 01-28-2023 take 1 tablet by mouth twice daily doxycycline monohydrate 100 mg tablet Indications: Skin infection Take 1 tablet by mouth twice daily for 5 days. 10 tablet 0 01/23/2023 01/28/2023 Active Completed/Discontinued Medications Medication Drug Class(es) Dates Sig (Normalized) Sig (Original) [id number] 200 actuat albuterol 0.09 mg/actuat metered dose inhaler (1 source) beta2-Adrenergic Agonist Start: 09-22-2021 take 2 puff(s) by inhalation every four hours as needed for wheezing albuterol HFA (PROVENTIL HFA, VENTOLIN HFA) 90 mcg/actuation inhaler Indications: Cough Inhale 2 Puffs as instructed every 4 hours as needed for wheezing/shortnes s of breath. 1 Each 1 09/22/2021 Active Problems Active Problems Problem Classification Problem Date Documented Date Episodic/Chronic Headache; including migraine (1 source) Migraine without aura, not refractory ; Translations: [Migraine without aura, not intractable, without status migrainosus] Onset: 03-12-2018 03-12-2018 Chronic Mycoses (1 source) Opportunistic mycosis; Translations: [Candidiasis, unspecified] Episodic Skin and subcutaneous tissue infections (1 source) Infection of skin; Translations: [Local infection of the skin and subcutaneous tissue, unspecified] Episodic Past or Other Problems Problem Classification Problem Date Documented Date Episodic/Chronic Contraceptive and procreative management (1 source) History of contraceptive usage; Translations: [Personal history of contraception] Onset: 03-12-2018 03-12-2018 Episodic Results Test Name Value Interpretation Reference Range Facil ity Vital Signs Date Time Vital Sign Value Performing Clinician Faci lity 01-23-2023 10:10-0400 Body height 161.3 cm Kellygris Stoddardye MERCHANDISE PROCESSOR.BAKER HEAD Work Phone: [facility] 01-23-2023 10:10-0400 Body temperature 98.01 [degF] Kelly Stoddardye MERCHANDISE PROCESSOR.BAKER HEAD Work Phone: [facility] 01-23-2023 10:10-0400 Body weight 54.66 kg Kelly Stoddardye MERCHANDISE PROCESSOR.BAKER HEAD Work Phone: [facility] 01-23-2023 10:10-0400 Diastolic blood pressure 71 mm[Hg] Kelly Britton MERCHANDISE PROCESSOR.BAKER HEAD Work Phone: [facility] 01-23-2023 10:10-0400 Heart rate 68 /min Kelly Stoddardye MERCHANDISE PROCESSOR.BAKER HEAD Work Phone: [facility] 01-23-2023 10:10-0400 Respiratory rate 16 /min Kelly Stoddardye MERCHANDISE PROCESSOR.BAKER HEAD Work Phone: [facility] 01-23-2023 10:10-0400 SaO2% (BldA) [Mass fraction] 100 % Kelly Britton MERCHANDISE PROCESSOR.BAKER HEAD Work Phone: [facility] 01-23-2023 10:10-0400 Systolic blood pressure 103 mm[Hg] Kelly Britton MERCHANDISE PROCESSOR.BAKER HEAD Work Phone: [facility] Encounters Encounter Date Encounter Type Care Provider Facility Start: 01-23-2023 End: 01-23-2023 ambulatory KRIS WILSON Facility:[facility] Start: 01-23-2023 End: 01-23-2023 Patient encounter procedure Kelly Britton APRN.CNP Work Phone: [facility] Procedures Date Procedure Procedure Detail Performing Clinician Start: 12-26-2015 Mammography Kelly Shrestha PRN.CNP Work Phone: Plan of Treatment Date Care Activity Detail Author Start: 05-23-2023 Influenza vaccination INFLUENZA (Sea son Ended) [facility] Start: 09-22-2022 DEPRESSION ASSESSMENT DEPRESSION ASS ESSMENT [facility] Start: 12-24-2021 PAP TESTING PAP TESTING [facility] Start: 12-22-2021 COVID-19 VACCINE (4 - Booster for Pfizer series) COVID-19 VACCINE (4 - Booster for Pfizer series) [facility] Start: 12-11-2020 HPV TESTING HPV TESTING [facility] Start: 2020 Mammography MAMMOGRAM [facility] Start: 06-01-2008 Urine microalbumin profile DTAP,TDAP ,TD (1 - Tdap) [facility] Start: 1998 HEPATITIS C SCREENING HEPATITIS C SC REENING [facility] Start: 1998 HIV SCREENING HIV SCREENING [facility] Start: 1980 HEPATITIS B (1 of 3 - 3-dose series) HEPATITIS B (1 of 3 - 3-dose series) [facility] Immunizations Immunization Date Immunization Notes Care Provider Rachna argueta 01-27-2021 COVID-19 original vaccine, age 12+ yr, monovalent (PFIZER-BIONTECH - PURPLE TOP) Kelly Britton APRN.BAKER HEAD Work Phone: [facility] 01-06-2021 COVID-19 original vaccine, age 12+ yr, monovalent (PFIZER-BIONTECH - PURPLE TOP) Kelly Britton APRN.BAKER HEAD Work Phone: [facility] 05-31-2008 tetanus and diphther ia toxoids, adsorbed, preservative free, for adult use (2 Lf of tetanus toxoid and 2 Lf of diphtheria toxoid) Kelly Britton APRN.CNP Work Phone: [facility] Work Phone: Payers Date Payer Category Payer Unknown [employer] PPO [id number] 2021-Present [phone] [address] [place] [address] PPO [id number] 2021 Unknown [id number] Social History Date Type Detail Facility Start: [facility]-23-[facility]23 [facility] History of tobacco use Current smoker [facility] History of tobacco use Cigarette Smoker C [facility] Start: 01-23-2023 Cigarettes smoked cu rrent (pack per day) - Reported 0.3 [facility] Start: 01-23-2023 Tobacco use and exposure Smoke less tobacco non-user [facility] Start: 01-23-2023 Alcohol intake Current drinke r of alcohol (finding) [facility] Start: 01-23-2023 Tobacco Comment 1-2/day [facility] Start: 1980 Sex Assigned At Not on file C [facility] Progress note 01-23-2023 Note Date & Type Note Facility 01-23-2023 Note HNO ID: [id number] Author: Kelly Britton APRN.BAKER HEAD Service: ? Author Type: Nurse Practitioner Type: Progress Notes Filed: 01/23/2023 10:26 AM Note Text: This note was created using [employer] 360riter. Subjective Kenisha Cervantes is a 42 year old female. HPI by patient: Kenisha Cervantes is a 42 year old presenting to the office with the complaint of a bug bite. Started approximately 4-5 days prior. Associated symptoms include spreading redness, pustules, and tenderness. [place] very chilled the other night, thinks she had a fever. Denies checking her temperature, drainage, and previous skin infection. Does shave her legs, did shave in the days leading up to the redness. OTC hydrocortisone cream with no improvement. No antibiotic use in the last 60 days. ALLERGIES Chocolate Swelling, Itching Family History Reviewed Including Cardiac Diseases, Psychiatric Diseases, AND Substance Abuse Problem: Coronary Artery Disease Relation: Father Age of Onset: (Not Specified) Comment: no details known Problem: Cancer Relation: Maternal Grandmother Age of Onset: (Not Specified) Comment: ovarian Problem: Colon Cancer Relation: Other Age of Onset: (Not Specified) Comment: none Problem: Diabetes Relation: Other Age of Onset: (Not Specified) Comment: none Social History Tobacco Use Smoking status: Former Packs/day: 0.25 Years: 10.00 Pack years: 2.5 Types: Cigarettes Smokeless tobacco: Never Tobacco comments: 1-2/day Alcohol use: Yes Alcohol/week: 5.0 standard drinks Types: 1 Glasses of Wine (5oz), 1 Cans of Beer (12oz) per week Drug use: No Active Ambulatory Problems Migraine without aura and without status migrainosus, not intractable Date Noted: 03/12/2018 History of contraception Date Noted: 03/12/2018 Resolved Ambulatory Problems Routine gynecological examination Date Noted: 09/26/2008 Routine general medical examination at a health care facility Date Noted: 09/26/2008 Family history of other cardiovascular diseases(V17.49) Date Noted: 09/26/2008 Tobacco use disorder Date Noted: 09/26/2008 Dermatophytosis of nail Date Noted: 06/21/2011 Condyloma acuminatum Date Noted: 11/12/2011 Recurrent vaginitis Date Noted: 05/04/2016 Past Medical History: 11/28/2011: Condyloma acuminata 11/16/2012: Yeast infection Review of Systems Constitutional: Negative. HENT: Negative. Eyes: Negative. Respiratory: Negative. Cardiovascular: Negative. Gastrointestinal: Negative. Endocrine: Negative. Genitourinary: Negative. Musculoskeletal: Negative. Skin: Positive for color change. Neurological: Negative. Hematological: Negative. Objective BP 103/71 (BP Site: Right Arm, BP Position: Sitting, BP Cuff Size: Regular Adult) Pulse 68 Temp 36.7 ?C (98 ?F) (Temporal) Resp 16 Ht 161.3 cm (5' 3.5 ) Wt 54.7 kg (120 lb 8 oz) LMP 11/23/2016 (Exact Date) SpO2 100% BMI 21.01 kg/m? Physical Exam Vitals reviewed. Constitutional: General: She is not in acute distress. Appearance: She is not ill-appearing, toxic-appearing or diaphoretic. Cardiovascular: Rate and Rhythm: Normal rate and regular rhythm. Pulmonary: Effort: Pulmonary effort is normal. Skin: Findings: Erythema (patch of erythema with small pustules within, no active drainage, is tender on palpation, does thompson.) present. Neurological: Mental Status: She is alert. Psychiatric: Behavior: Behavior is cooperative. Assessment and Plan (L08.9) Skin infection (primary encounter diagnosis) Plan: doxycycline monohydrate 100 mg tablet, mupirocin (BACTROBAN) 2 % ointment (B37.9, T36.95XA) Antibiotic-induced yeast infection Plan: fluconazole (DIFLUCAN) 150 mg tablet -Patch of erythema with small pustules within, slightly warm and tender around. Will treat with doxycycline and mupirocin. -OTC Antihistamine if there is itching. Avoid shaving and scratching. Avoid heat, use non scented soaps. -Schedule a follow up with primary care for further workup if no improvement, may need to see Derm. -Signs that warrant an ER evaluation: Sudden change/worsening in condition, lethargy, signs of dehydration, fever greater than 102 F that is not responding to Tylenol or ibuprofen (Motrin, Advil), drooling, difficulty swallowing, difficulty breathing, shortness of breath, chest pain, evidence of airway compromise (tripod position, neck extension, retractions), seizures, changes in mental status, or other concerns. The patient will pursue further outpatient evaluation with the primary care physician or another Urgent Care/Express Care as outlined in the after visit summary. The patient is agreeable to this plan of care and follow-up instructions have been explained in detail. The patient has received these instructions in written format and have expressed an understanding of the after visit summary. Medical Decision Making: Level: 4 - Moderate I spent a total of 20 m (more content not included)... [facility] History of Present illness Narrative 01-23-2023 Kelly Britton APRN.[facility] - 01/23/2023 10:06 AM EDT Note Date & Type Note Facility 01-23-2023 History of Presen t illness Narrative Images from the original note were not included. This note was created using NoteWriter. Subjective Kenisha Cervantes is a 42 year old female. HPI by patient: Kenisha Cervantes is a 42 year old presenting to the office with the complaint of a bug bite. Started approximately 4-5 days prior. Associated symptoms include spreading redness, pustules, and tenderness. [place] very chilled the other night, thinks she had a fever. Denies checking her temperature, drainage, and previous skin infection. Does shave her legs, did shave in the days leading up to the redness. OTC hydrocortisone cream with no improvement. No antibiotic use in the last 60 days. ALLERGIES Chocolate Swelling, Itching Family History Reviewed Including Cardiac Diseases, Psychiatric Diseases, & Substance Abuse Problem: Coronary Artery Disease Relation: Father Age of Onset: (Not Specified) Comment: no details known Problem: Cancer Relation: Maternal Grandmother Age of Onset: (Not Specified) Comment: ovarian Problem: Colon Cancer Relation: Other Age of Onset: (Not Specified) Comment: none Problem: Diabetes Relation: Other Age of Onset: (Not Specified) Comment: none Social History Tobacco Use Smoking status: Former Packs/day: 0.25 Years: 10.00 Pack years: 2.5 Types: Cigarettes Smokeless tobacco: Never Tobacco comments: 1-2/day Alcohol use: Yes Alcohol/week: 5.0 standard drinks Types: 1 Glasses of Wine (5oz), 1 Cans of Beer (12oz) per week Drug use: No Active Ambulatory Problems Migraine without aura and without status migrainosus, not intractable Date Noted: 03/12/2018 History of contraception Date Noted: 03/12/2018 Resolved Ambulatory Problems Routine gynecological examination Date Noted: 09/26/2008 Routine general medical examination at a health care facility Date Noted: 09/26/2008 Family history of other cardiovascular diseases(V17.49) Date Noted: 09/26/2008 Tobacco use disorder Date Noted: 09/26/2008 Dermatophytosis of nail Date Noted: 06/21/2011 Condyloma acuminatum Date Noted: 11/12/2011 Recurrent vaginitis Date Noted: 05/04/2016 Past Medical History: 11/28/2011: Condyloma acuminata 11/16/2012: Yeast infection Review of Systems Constitutional: Negative. HENT: Negative. Eyes: Negative. Respiratory: Negative. Cardiovascular: Negative. Gastrointestinal: Negative. Endocrine: Negative. Genitourinary: Negative. Musculoskeletal: Negative. Skin: Positive for color change. Neurological: Negative. Hematological: Negative. Objective BP 103/71 (BP Site: Right Arm, BP Position: Sitting, BP Cuff Size: Regular Adult) Pulse 68 Temp 36.7 C (98 F) (Temporal) Resp 16 Ht 161.3 cm (5' 3.5 ) Wt 54.7 kg (120 lb 8 oz) LMP 11/23/2016 (Exact Date) SpO2 100% BMI 21.01 kg/m Physical Exam Vitals reviewed. Constitutional: General: She is not in acute distress. Appearance: She is not ill-appearing, toxic-appearing or diaphoretic. Cardiovascular: Rate and Rhythm: Normal rate and regular rhythm. Pulmonary: Effort: Pulmonary effort is normal. Skin: Findings: Erythema (patch of erythema with small pustules within, no active drainage, is tender on palpation, does thompson.) present. Neurological: Mental Status: She is alert. Psychiatric: Behavior: Behavior is cooperative. Assessment and Plan (L08.9) Skin infection (primary encounter diagnosis) Plan: doxycycline monohydrate 100 mg tablet, mupirocin (BACTROBAN) 2 % ointment (B37.9, T36.95XA) Antibiotic-induced yeast infection Plan: fluconazole (DIFLUCAN) 150 mg tablet -Patch of erythema with small pustules within, slightly warm and tender around. Will treat with doxycycline and mupirocin. -OTC Antihistamine if there is itching. Avoid shaving and scratching. Avoid heat, use non scented soaps. -Schedule a follow up with primary care for further workup if no improvement, may need to see Derm. -Signs that warrant an ER evaluation: Sudden change/worsening in condition, lethargy, signs of dehydration, fever greater than 102 F that is not responding to Tylenol or ibuprofen (Motrin, Advil), drooling, difficulty swallowing, difficulty breathing, shortness of breath, chest pain, evidence of airway compromise (tripod position, neck extension, retractions), seizures, changes in mental status, or other concerns. The patient will pursue further outpatient evaluation with the primary care physician or another Urgent Care/Express Care as outlined in the after visit summary. The patient is agreeable to this plan of care and follow-up instructions have been explained in detail. The patient has received these instructions in written format and have expressed an understanding of the after visit summary. Medical Decision Making: Level: 4 - Moderate I spent a total of 20 minutes on the date of the service which included preparing to see the patient, [id number] patient care, completing clinical documentation, obtaining and/or reviewing separately obtained history, performing a medically appropriate examination, counseling and educating the patient/family/caregiver, and ordering medications, tests, or procedures. documented in this encounter [facility] Instructions 01-23-2023 Patient Instructions Note Date & Type Note Facility 01-23-2023 Instructions Kelly Britton APRN.CNP - 01/23/2023 10:06 AM EDT (L08.9) Skin infection (primary encounter diagnosis) Plan: doxycycline monohydrate 100 mg tablet, mupirocin (BACTROBAN) 2 % ointment (B37.9, T36.95XA) Antibiotic-induced yeast infection Plan: fluconazole (DIFLUCAN) 150 mg tablet -Patch of erythema with small pustules within, slightly warm and tender around. Will treat with doxycycline and mupirocin. -OTC Antihistamine if there is itching. Avoid shaving and scratching. Avoid heat, use non scented soaps. -Schedule a follow up with primary care for further workup if no improvement, may need to see Derm. -Signs that warrant an ER evaluation: Sudden change/worsening in condition, lethargy, signs of dehydration, fever greater than 102 F that is not responding to Tylenol or ibuprofen (Motrin, Advil), drooling, difficulty swallowing, difficulty breathing, shortness of breath, chest pain, evidence of airway compromise (tripod position, neck extension, retractions), seizures, changes in mental status, or other concerns. documented in this encounter [facility] History of Past illness Narrative 05-04-2016 Note Date & Type Note Facility documented as of this encounter (statuses as of 01/23/2023) [facility] Evaluation note Note Date & Type Note Facility documented in this encounter [facility] Summary Purpose Family History No Family History Records FoundNo Family History Records Found Advance Directives No Advanced Directives Records FoundNo Advanced Directives Records Found Additional Source Comments INFORMATION SOURCE (unrecogn ized section and content) DATE CREATED AUTHOR AUTHOR'S ORGANIZ ATION 01/26/2023 [facility] Source Comments (unrecognize d section and content) In the event this informatio n is protected by the Federal Confidentiality of Alcohol and Drug Abuse Patient Records regulations: The Federal rules restrict any use of the information to criminally investigate or prosecute any alcohol or drug abuse patient.[facility] Reason for Visit (unrecogniz ed section and content) Care Teams (unrecognized sec tion and content) FOR RECORDS PERTAINING TO PATIENTS WHO ARE OR HAVE BEEN ENROLLED IN A CHEMICAL DEPENDENCY/SUBSTANCEABUSE PROGRAM, SOME INFORMATION MAY BE OMITTED. This clinical summary was aggregated from multiple sources. Caution should be exercised in using it in the provision of clinical care. This summary normalizes information from multiple sources, and as a consequence, information in this document may materially change the coding, format and clinical context of patient data. In addition, data may be omitted in some cases. CLINICAL DECISIONS SHOULD BE BASED ON THE PRIMARY CLINICAL RECORDS. [facility] [facility]. provides no warranty or guarantee of the accuracy or completeness of information in this document.
== END | disposition home or self-care (01) ==
LOC: OPBI 07:12
PROVIDERS: PCP Family Medicine; Referring Provider Obstetrics & Gynecology; Visit Provider Obstetrics & Gynecology
DX: Z12.31 Encounter for screening mammogram for malignant neoplasm of breast (principal)
CPT/HCPCS: 77063; 77067

== ENCOUNTER → 2024-10-22 | Outpatient (CLI) | payer BC, SELFPAY ==
[2024-10-27 12:08] LABS: HPV APTIMA, High Risk Negative (Negative)
== END | disposition home or self-care (01) ==
LOC: LABSPEC 09:38
PROVIDERS: PCP Family Medicine; Referring Provider Obstetrics & Gynecology; Visit Provider Obstetrics & Gynecology
DX: Z12.4 Encounter for screening for malignant neoplasm of cervix (principal)
CPT/HCPCS: 87624; 88175; G0145

== ENCOUNTER → 2024-11-04 | Outpatient (CLI) | payer BC, SELFPAY ==
--- NOTE | 2024-11-04 07:58 | BI_ITS ---
PROCEDURE: SCRN MAMM (CAD)W/MEG BILAT REASON FOR EXAM: F, Age 44 y/o, no family history. Routine annual mammographic follow-up. TECHNIQUE: Bilateral screening digital breast tomosynthesis with 2D and 3D images. Computer aided detection. COMPARISON: Comparison is made with prior study dated November 03, 2023. FINDINGS: The breasts are extremely dense which lowers the sensitivity of mammography. Stable examination. No suspicious masses, areas of developing architectural distortion, or suspicious calcifications. There has been no significant interval change. BI/SCRN MAMM (CAD)W/MEG BILAT IMPRESSION: BI-RADS 1: NEGATIVE. RECOMMEND ANNUAL MAMMOGRAPHIC SCREENING. Follow-up code: Routine Follow-up The patient will be notified of the results by letter. Reading Location: [place] [address]
[2024-11-04 09:09] LABS: Vitamin D,25 Hydroxy 35.7 ng/mL
[2024-11-04 09:13] LABS: Cholesterol 215 mg/dL (200); Glucose 107 mg/dL (74-106); High Density Lipoprotein 74 mg/dL; Triglycerides 85 mg/dL; Very Low Density Lipoprotein 17 mg/dL (5-40)
== END | disposition home or self-care (01) ==
PROVIDERS: PCP Family Medicine; Referring Provider Obstetrics & Gynecology; Visit Provider Obstetrics & Gynecology
DX: Z12.31 Encounter for screening mammogram for malignant neoplasm of breast (principal); Z13.1 Encounter for screening for diabetes mellitus; Z13.21 Encounter for screening for nutritional disorder; Z13.220 Encounter for screening for lipoid disorders; Z13.29 Encounter for screening for other suspected endocrine disorder
CPT/HCPCS: 36415; 77063; 77067; 80061; 82306; 82947; 84443

== ENCOUNTER → 2024-12-27 | Outpatient (CLI) | payer BC, SELFPAY ==
[2024-12-27 18:11] LABS: Free T3 2.3 pg/mL (2.18-3.98)
== END | disposition home or self-care (01) ==
LOC: BFHLAB 11:48
PROVIDERS: PCP Family Medicine; Visit Provider Family Medicine
DX: E03.9 Hypothyroidism, unspecified (principal)
CPT/HCPCS: 36415; 84439; 84443; 84481; 86376; 86800

== ENCOUNTER 2025-06-20 07:34 | Day surgery (SDC) | payer BC, SELFPAY ==
[2025-06-20] VITALS (8 sets, daily range): BP systolic 93–101; BP diastolic 60–80; PULSE 50–78; RESP 14–16; TEMP 36.1–36.3; O2SAT 99–100; BMI 22.4
[2025-06-20] MEDS: Lactated Ringers 1,000 ML 15 ML IV (08:46)
[2025-06-20 08:50] LABS: Internal QC Validated? YES +Cl - CLEAR BKGD; Pregnancy, Urine Negative Negative; Record Kit Lot#,Urine Preg 964736
--- NOTE | 2025-06-20 08:50 | PCM.PRE.AN2 ---
ASA Classification* ASA Classification ASA Classification: 1 Assessment & Plan Anesthesia* Anesthesia Assessment Anesthesia Assessment: Discussed sedation and/or anesthesia options, risks, benefits, and alternatives with patient/parents/legal guardian/POA. Questions invited. The patient/parents/legal guardian/POA seems to understand and agrees to proceed with anesthesia plan. Reviewed the physical assessment, medical history, allergy history and patient home medications list prior to surgery/procedure/anesthetic and documented any changes. Performed airway and anesthesia risk assessments. Anesthesia Type Anesthesia Type: MAC History Source History Obtained from:: Patient and Chart Anesthesia Focused Assessment* Temperature: 97 F Pulse Rate: 50 Blood Pressure: 101/60 Respiratory Rate: 16 Pulse Ox: 100 Oxygen Delivery Method: Room Air Airway Assessment Mouth opens: >3 cm Mallampati Score: II Teeth Condition: Intact Labs Anesthesia Preop lab: CBC WBC, (4.4-11.0) 7.3 K/mm3 09/29/22, 14:40 RBC, (4.2-5.4) 4.63 M/mm3 09/29/22, 14:40 Hgb, (12.0-15.0) 13.4 g/dL 09/29/22, 14:40 Hct, (37-47) 39.9 % 09/29/22, 14:40 Plt Count, (150-450) 233 K/mm3 09/29/22, 14:40 CHEMISTRY Potassium, (3.5-5.1) 3.5 mmol/L 09/29/22, 14:40 Sodium, (136-145) 138 mmol/L 09/29/22, 14:40 BUN, (7-18) 15 mg/dL 09/29/22, 14:40 Creatinine, (0.55-1.02) 0.90 mg/dL 09/29/22, 14:40 Glucose, (74-106) 107 mg/dL H 11/04/24, 08:38 TSH, (0.300-4.200) 2.310 uIU/mL 12/27/24, 11:49 COAG Urine Test Negative Negative Today, 08:30 Pre-Assessment Diagnosis/Proposed Procedure Planned Operative Procedure(s): Colonoscopy - Open Access Anesthesia History Anesthesia History - community placement worker: Anesthesia History - community placement worker Hx Hospitalization No 06/16/25 13:13 Any Problems With Anesthesia No 06/16/25 13:13 Cholinesterase deficiency No 06/16/25 13:13 You/Your Family Experience No 06/16/25 13:13 fever (hyperthermia) with Relationship Recent Exposure to Contagious No 06/20/25 08:35 Disease Does patient have nerve No 06/16/25 13:13 stimulator Patient instructed to have device shut off --Does patient have Pacemaker No 06/20/25 08:35 or ICD? When Was Last Pacemaker Check QUESTION #4 FULL TEXT: You/Your Family Experience fever (hyperthermia) with Anesthesia Last Oral Intake Last Oral intake: Last Oral Intake NPO since 00:00 06/20/25 08:35 Meds taken in AM with sips of No 06/20/25 08:35 water? Meds patient instructed to take am of surgery PONV PONV - community placement worker: PONV - community placement worker Female Yes 06/16/25 13:13 HX of Motion Sickness No 06/16/25 13:13 HX of N/V After Surgery No 06/16/25 13:13 Non-Smoker Yes 06/16/25 13:13 Duration of Surgery greater No 06/16/25 13:13 than 60 minutes Number of Risk Factors 2 06/16/25 13:13 PONV Score Moderate Risk 06/16/25 13:13 Height & Weight Height & Weight: Anesthesia: Height & Weight Height 5 ft 1 in 06/20/25 08:35 Weight: 53.9 kg 06/20/25 08:35 Body Mass Index (BMI) 22.4 06/20/25 08:35 Respiratory Assessment Respiratory Assessment - community placement worker: Respiratory Tract Infection Hx - community placement worker Hx Respiratory Tract Infection No 06/16/25 13:13 STOP Sleep Apnea STOP Sleep Apnea - community placement worker: STOP Sleep Apnea - community placement worker Hx Hypertension No 06/16/25 13:13 Hx Sleep Apnea No 06/16/25 13:13 CPAP BIPAP Do you snore loudly (louder No 06/16/25 13:13 than talking or can be heard Do you often feel tired/ No 06/16/25 13:13 fatigued/ sleepy during daytime? Has anyone observed you stop No 06/16/25 13:13 breathing during sleep? STOP Results Negative 06/16/25 13:13 QUESTION #5 FULL TEXT : Do you snore loudly (louder than talking or can be heard through closed doors)? Tobacco Use History Tobacco Use History - community placement worker: Tobacco Use History - community placement worker Tobacco Use Smoking Status Former smoker 06/16/25 13:13 Hx Tobacco Use No 06/16/25 13:13 Years Smoking Packs Smoked per Day Smoking Cessation Date was Yes - quit smoking within 15 06/16/25 13:13 within the last 15 years years Hx Smoking Cessation Date 09/22/19 06/16/25 13:13 Hx Smoking Cessation Counseling Hematologic Medial History Hematologic Hx - community placement worker: Hematologic Medical Hx - mft Hx of Blood Transfusion No 06/16/25 13:13 Hx of Transfusion in last 3 No 06/16/25 13:13 Months Date of Last Transfusion (if within last 3 months) Ever experience any problems No 06/16/25 13:13 with transfusion(s)? Specify any problems Hx of Preganancy in last 3 No 06/16/25 13:13 Months Nurse Filling Out Transfusion JZOLLINGE 06/16/25 13:13 & Questions: Date: 06/16/25 06/16/25 13:13 Time: 13:15 06/16/25 13:13 Patient unable to answer at this time (ie. confused, unrespo /Reproduction History /Reproductive History - community placement worker: /Reproductive Hx- community placement worker Hx Now No 06/16/25 13:13 Gestational Age (in weeks): EDC: Hx Hx Para Hx Section SAB No 06/16/25 13:13 Active Medications Active Medications: Current Medications Generic Name Dose Route Start Last Admin Trade Name Freq PRN Reason Stop Dose Admin Lactated Ringer's 1,000 mls @ 15 mls/hr 06/20/25 07:45 06/20/25 08:46 IV 15 mls/hr .Q48H YASMIN Administration PFSH Medical History (Updated 06/20/25 @ 08:[address] Sabiha Henderson MD) Anemia Heartburn Alcohol use Back pain Former smoker Leg cramps Shoulder pain Abnormal Pap smear of cervix Migraines Home Medications ?Medication ?Instructions ?Recorded ?Last Taken ?Type ascorbate calcium (vitamin C) 500 500 mg PO DAILY 12/11/20 Unknown History mg tablet cholecalciferol (vitamin D3) 25 25 mcg PO QDAY 08/31/24 Unknown History mcg (1,000 unit) capsule multivitamin 1 tab PO QDAY 08/31/24 Unknown History biotin 1 mg capsule 1 mg PO DAILY 06/16/25 Unknown History Allergy/AdvReac Type Severity Reaction Status Date / Time cocoa Allergy Anaphylaxis, Verified 06/16/25 13:09 itching, swelling Family History Other Cancer Ovarian cancer Uterine cancer Surgical History No history of previous surgery Social History household members: spouse housing: house Smoking Status: Former smoker pack-years: 10 alcohol intake: current alcohol intake frequency: holidays/special occasions only substance use type: does not use caffeine: Yes what type of physical activity do you participate in: yoga frequency: 5-6 times per week seatbelt use: always do you feel safe at home: Yes additional social history: - Nicholas Patient works at the [employer] Review of Systems (Anesthesia) ROS Narrative System reviewed and no additional complaints, except as documented. Physical Exam Const alert and oriented x3 Resp normal respiratory effort and normal air movement Auscultation: clear to auscultation bilaterally Cardio Cardio Narrative: bradycardic Back/Spine normal ROM
--- NOTE | 2025-06-20 08:52 | H&P.OPEN ---
[facility] - General General Date of Service: 06/20/25 HPI Narrative POLO HALEY, is a 45 F who presents for screening colonoscopy. Patient never had colonoscopy previously. Patient denies a family history of colon cancer. Patient has bowel movements every 2 to 3 days. Patient denies any chronic abdominal pain/nausea/vomiting/reflux. [facility] Medical History (Updated 06/20/25 @ 08:[address] Sabiha Henderson MD) Anemia Heartburn Alcohol use Back pain Former smoker Leg cramps Shoulder pain Abnormal Pap smear of cervix Migraines Home Medications ?Medication ?Instructions ?Recorded ?Last Taken ?Type ascorbate calcium (vitamin C) 500 500 mg PO DAILY 12/11/20 Unknown History mg tablet cholecalciferol (vitamin D3) 25 25 mcg PO QDAY 08/31/24 Unknown History mcg (1,000 unit) capsule multivitamin 1 tab PO QDAY 08/31/24 Unknown History biotin 1 mg capsule 1 mg PO DAILY 06/16/25 Unknown History Allergy/AdvReac Type Severity Reaction Status Date / Time cocoa Allergy Anaphylaxis, Verified 06/16/25 13:09 itching, swelling Family History Other Cancer Ovarian cancer Uterine cancer Surgical History No history of previous surgery Social History household members: spouse housing: house Smoking Status: Former smoker pack-years: 10 alcohol intake: current alcohol intake frequency: holidays/special occasions only substance use type: does not use caffeine: Yes what type of physical activity do you participate in: yoga frequency: 5-6 times per week seatbelt use: always do you feel safe at home: Yes additional social history: - Nicholas Patient works at the [employer] Past Medical/Surgical History Planned Operation Planned Operative Procedure(s): Colonoscopy - Open Access Previous Hospitalizations/Surgeries HX Hospitalizations: No Any Problems With Anesthesia: No (NO SURGERY) You/Your Family Experience Fever (Hyperthermia) With Anes: No Cholinesterase deficiency: No Cardiovascular Hx Hypertension: No Respiratory Hx Sleep Apnea: No Hx Respiratory Tract Infection/Cold (presently): No Do You Snore Loudly (louder than talking or can be heard): No Do You Often Feel Tired/ Fatigued/ Sleepy Dring Daytime?: No Has Anyone Observed You Stop Breathing During Sleep?: No Result (for STOP score): Negative Smoking Status: Former smoker Neurological Does patient have nerve stimulator: No Reproduction : No Miscellaneous Recent Exposure to Contagious Disease: No Allergies cocoa Allergy (Verified 06/16/25 13:09) Anaphylaxis, itching, swelling Discharge Is Pt Admitted From a Jail, or a Correction: No After D/C, Where Do you Plan to Go: Return Home Vital Signs Vital Signs Vital Signs: 06/20/25 08:35 06/20/25 08:35 06/20/25 08:52 Temperature 97 F L 97 F L Temperature Source Temporal Pulse Rate 50 L 50 L Respiratory Rate 16 16 Respiratory Pattern Normal Blood Pressure 101/60 101/60 Blood Pressure Mean 73 Blood Pressure Source Monitor Blood Pressure Position Semi-Fowlers Blood Pressure Location Left Arm Pulse Ox 100 100 Oxygen Delivery Method Room Air Room Air Weight Weight: 118 lb 13.266 oz Body Mass Index (BMI) 22.4 Physical Exam Const alert, oriented x3 and no apparent distress HEENT normocephalic and head/scalp atraumatic Resp normal respiratory effort Cardio regular rate GI soft to palpation and non-tender; Negative for non-distended Palpation: Negative for guarding Extremity no clubbing, cyanosis or edema Skin no rashes or lesions noted Neuro CN's II-XII intact bilaterally Psych mental status grossly normal Assessment & Plan Assessment/Plan (1) Screening for colon cancer: Surgery Risks - Colonoscopy I discussed with the patient the risks of the procedure: Yes Risks Include but are not Limited To: Risks include but are not limited to: Bleeding, perforation requiring further surgery, inability to complete colonoscopy requiring barium enema.
[2025-06-20] MEDS: Lidocaine 1% (5 ml sdv) 5 ML Vial IV (09:37)
--- NOTE | 2025-06-20 10:07 | OP.PROVAT_ITS ---
06/20/2025 Fozia Chaidez [place] [id number] [address] Re : Colonoscopy procedure for Kenisha Cervantes Dear Dr. Chaidez This procedure was performed on Friday, June 20, 2025. My impressions and recommendations are as follows: Impressions : - The entire examined colon is normal on direct and retroflexion views. - No specimens collected. Recommendations : - Discharge patient to home. - Resume previous diet. - Continue present medications. - Await pathology results. - Repeat colonoscopy in 10 years for screening purposes. My findings are described in the full procedure note, which is enclosed. If I can be of further assistance, please feel free to contact me at Doctor phone number(s): , Work: . Sincerely, MD Saibha Walker MD 06/20/2025 10:06:55 AM This report has been signed electronically.
--- NOTE | 2025-06-20 10:07 | OP.COLON_ITS ---
Patient Name: Kenisha Cervantes Procedure Date: 06/20/2025 9:29 AM Date of : 1980 Age: 45 Procedure: Colonoscopy Indications: Screening for colorectal malignant neoplasm Providers: Sabiha Henderson MD Referring MD: Fozia Chaidez Medicines: Monitored Anesthesia Care Patient Profile: This is a 45 year old female. Last Colonoscopy: none. The patient's first colonoscopy is today. Complications: No immediate complications. Procedure: Pre-Anesthesia Assessment: - Prior to the procedure, a History and Physical was performed, and patient medications and allergies were reviewed. The patient's tolerance of previous anesthesia was also reviewed. The risks and benefits of the procedure and the sedation options and risks were discussed with the patient. All questions were answered, and informed consent was obtained. Prior Anticoagulants: The patient has taken no anticoagulant or antiplatelet agents. ASA Grade Assessment: Per anesthesia. After reviewing the risks and benefits, the patient was deemed in satisfactory condition to undergo the procedure. After I obtained informed consent, the scope was passed under direct vision. Throughout the procedure, the patient's blood pressure, pulse, and oxygen saturations were monitored continuously. The pediatric colonoscope was introduced through the anus and advanced to the cecum, identified by the appendiceal orifice, ileocecal valve and palpation. The patient tolerated the procedure well. The quality of the bowel preparation was good. The colonoscopy was somewhat difficult due to a tortuous colon. Scope In: 9:42:55 AM Scope Withdrawal Time 0 hours 7 minutes 59 seconds Scope Out: 10:02:01 AM Total Procedure Duration Time 0 hours 19 minutes 6 seconds Findings: The perianal and digital rectal examinations were normal. The entire examined colon appeared normal on direct and retroflexion views. Impression: - The entire examined colon is normal on direct and retroflexion views. - No specimens collected. Recommendation: - Discharge patient to home. - Resume previous diet. - Continue present medications. - Await pathology results. - Repeat colonoscopy in 10 years for screening purposes. Procedure Code(s): --- Professional --- G0121, PT, Colorectal cancer screening; colonoscopy on individual not meeting criteria for high risk Diagnosis Code(s): --- Professional --- Z12.11, Encounter for screening for malignant neoplasm of colon CPT copyright 2021 [employer]. All rights reserved. The codes documented in this report are preliminary and upon category development manager review may be revised to meet current compliance requirements. MD Sabiha Walker MD 06/20/2025 10:06:55 AM This report has been signed electronically. Number of Addenda: 0 Note Initiated On: 06/20/2025 9:29 AM
--- NOTE | 2025-06-20 10:08 | PCM.POST.ANE ---
Anesthesia: Postop Eval I Current Vital Signs Temperature: 97.3 F Pulse Rate: 76 Blood Pressure: 96/62 Respiratory Rate: 14 Pulse Ox: 99 Oxygen Delivery Method: Room Air Assessment Airway patent: Yes Spontaneous unlabored respirations: Yes Mental status: Asleep nausea: No Vomiting: No Anesthesia Complication: No Fluid Hydration Crystalloid volume administer (ml): 600 Total IV fluid infused: 600 Progress Note Anesthesia document: Postop Eval 1 completed: Yes
--- NOTE | 2025-06-20 11:57 | POSTOPAN2_ITS ---
Anesthesia Postop Eval I Sum Postop Eval Completion status Anesthesia document: Postop Eval 1 completed: Yes Anesthesia Postop Eval I Summary Anesthesia Postop Eval I Summary: Anesthesia Postop Eval I: Assessment Summary Airway patent Yes 06/20/25 10:10 NUCLEAR RADIOLOGIST.MESSIOBLenard Spontaneous unlabored Yes 06/20/25 10:10 NUCLEAR RADIOLOGIST.JERMAINE respirations Mental status Asleep 06/20/25 10:10 NUCLEAR RADIOLOGIST.JERMAINE nausea No 06/20/25 10:10 NUCLEAR RADIOLOGIST.JERMAINE Vomiting No 06/20/25 10:10 NUCLEAR RADIOLOGIST.JERMAINE Anesthesia Postop Eval I: Fluid Summary Crystalloid volume administer 600 06/20/25 10:10 NUCLEAR RADIOLOGIST.MESSIOBLenard (ml) Colloids volume administered ( ml) Blood Product volume administered (ml) Total IV fluid infused 600 06/20/25 10:10 NUCLEAR RADIOLOGIST.JERMAINE Anesthesia Postop Eval I: Summary Notes Anesthesia Complication No 06/20/25 10:10 NUCLEAR RADIOLOGIST.JERMAINE Anesthesia Complication Comment: Post-operative progress note Anesthesia: Postop Eval II Evaluation Mental status: Awake and Calm Pain Level: 0 nausea: No Vomiting: No Complications Anesthesia Complication: No
--- NOTE | 2025-06-20 11:57 | PCM.POSTANE2 ---
Anesthesia Postop Eval I Sum Postop Eval Completion status Anesthesia document: Postop Eval 1 completed: Yes Anesthesia Postop Eval I Summary Anesthesia Postop Eval I Summary: Anesthesia Postop Eval I: Assessment Summary Airway patent Yes 06/20/25 10:10 PARTS PERSON.[email or web address] Spontaneous unlabored Yes 06/20/25 10:10 PARTS PERSON.JERMAINE respirations Mental status Asleep 06/20/25 10:10 PARTS PERSON.JERMAINE nausea No 06/20/25 10:10 PARTS PERSON.JERMAINE Vomiting No 06/20/25 10:10 PARTS PERSON.JERMAINE Anesthesia Postop Eval I: Fluid Summary Crystalloid volume administer 600 06/20/25 10:10 PARTS PERSON.MESSIOBLenard (ml) Colloids volume administered ( ml) Blood Product volume administered (ml) Total IV fluid infused 600 06/20/25 10:10 PARTS PERSON.JERMAINE Anesthesia Postop Eval I: Summary Notes Anesthesia Complication No 06/20/25 10:10 PARTS PERSON.JERMAINE Anesthesia Complication Comment: Post-operative progress note Anesthesia: Postop Eval II Evaluation Mental status: Awake and Calm Pain Level: 0 nausea: No Vomiting: No Complications Anesthesia Complication: No
== END 2025-06-20 10:45 | disposition home or self-care (01) ==
LOC: EN 07:34 → AC 07:35
PROVIDERS: Anesthesiology; PCP Family Medicine; Referring Provider Family Medicine; Visit Provider Surgery
PROC: 0DJD8ZZ Inspection of Lower Intestinal Tract, Via Natural or Artificial Opening Endoscopic (ICD-10-PCS; CPT 45378; principal; 2025-06-20 08:55)
DX: Z12.11 Encounter for screening for malignant neoplasm of colon (principal); Z87.891 Personal history of nicotine dependence
CPT/HCPCS: 45378; 81025; J2405